=== PATIENT | male | born 1990 | race Hispanic/Latino ===

== ENCOUNTER 2018-05-01 04:21 | Emergency (ER) | payer BC ==
[2018-05-01 04:36] VITALS: RESP 16; TEMP 98
[2018-05-01 04:38] VITALS: O2SAT 100
--- NOTE | 2018-05-01 04:41 | ED PDOC ---
HPI: Psych/Substance Abuse Time Seen by Provider: 05/01/18 04:34 Chief Complaint (Nursing): Alcohol Ingestion Chief Complaint (Provider): Alcohol Ingestion History Per: Patient Additional Complaint(s): Juan Luis Ricci is a 28 year old male with no past medical history, who presents to the emergency department by EMS. Patient states he was sleeping outside apartment lobby and police were called. He admits to drinking alcohol and states he has no medical complaints and further denies any fall, pain or injury. PMD: no provider Past Medical History Reviewed: Historical Data, Nursing Documentation, Vital Signs Vital Signs: Last Vital Signs Temp 98.0 F 05/01/18 04:30 Pulse 64 05/01/18 04:30 Resp 16 05/01/18 04:30 BP 134/86 05/01/18 04:30 Pulse Ox 100 05/01/18 04:30 - Medical History PMH: No Chronic Diseases - Surgical History Surgical History: No Surg Hx - Family History Family History: States: Unknown Family Hx - Allergies Allergies/Adverse Reactions: Allergies Allergy/AdvReac Type Severity Reaction Status Date / Time No Known Allergies Allergy Verified 05/01/18 04:37 Review of Systems ROS Statement: Except As Marked, All Systems Reviewed And Found Negative Musculoskeletal: Negative for: Leg Pain Physical Exam - Reviewed Nursing Documentation Reviewed: Yes - Physical Exam Appears: Positive for: Non-toxic, No Acute Distress Head Exam: Positive for: ATRAUMATIC, NORMOCEPHALIC Skin: Positive for: Normal Color, Warm, Dry Eye Exam: Positive for: Normal appearance, EOMI, PERRL ENT: Positive for: Normal ENT Inspection Neurologic/Psych: Positive for: Alert, Oriented (x3), Gait (steady and unassisted) - ECG O2 Sat by Pulse Oximetry: 100 (RA) Pulse Ox Interpretation: Normal Medical Decision Making Medical Decision Making: Time: 433 Plan: Patient is requesting to be discharged. Scribe Attestation: Documented by Rohith Hargrove, acting as a scribe for Clint Campos Provider Scribe Attestation: All medical record entries made by the Scribe were at my direction and personally dictated by me. I have reviewed the chart and agree that the record accurately reflects my personal performance of the history, physical exam, medical decision making, and the department course for this patient. I have also personally directed, reviewed, and agree with the discharge instructions and disposition. Disposition - Clinical Impression Clinical Impression: Alcohol intoxication - Patient ED Disposition Is Patient to be Admitted: No - Disposition Disposition: Routine/Home Disposition Time: 04:40 Condition: STABLE Instructions: Alcohol Use - When Is Drinking a Problem? Forms: [employer] [employer] ([place])
[2018-05-01 06:51] VITALS: BP 128/82; PULSE 70
== END 2018-05-01 05:30 | disposition home or self-care (01) ==
LOC: H.ER 04:21
DX: F10.129 Alcohol abuse with intoxication, unspecified (principal)